=== PATIENT | female | born 2000 | race Two or more races ===

== ENCOUNTER 2022-04-10 02:29 | Emergency (ER) | payer MEDICAID, OTHER ==
[~2022-04-10] VITALS: Ht 152.4 cm; Wt 77.2 kg
[2022-04-10 02:41] VITALS: BP 106/67
== END 2022-04-10 05:21 | disposition left against medical advice (07) ==
LOC: ER 02:29
DX: R51.9 Headache, unspecified (principal); R50.9 Fever, unspecified; R05.9 Cough, unspecified; R11.2 Nausea with vomiting, unspecified; Z20.822 Contact with and (suspected) exposure to COVID-19; Z53.21 Procedure and treatment not carried out due to patient leaving prior to being seen by health care provider
CPT/HCPCS: 36415; 87426; 87804